=== PATIENT | male | born 1990 | race Two or more races ===

== ENCOUNTER 2020-09-05 01:10 | Emergency (ER) | payer SELFPAY ==
[~2020-09-05] VITALS: Ht 175.3 cm; Wt 81.6 kg
--- NOTE | 2020-09-05 01:30 | NUR ---
[facility]ash from [facility] [employer] [facility] [employer]. field bs 100. pt noted with eyes closed, responds to painful stimuli, rr even and unlabored. no sob noted. periods of dry heaving noted. pt connected to monitor. pt evaluated by dr. pleitez.
--- NOTE | 2020-09-05 01:35 | NUR ---
BROUGHT BACK FROM CT
[2020-09-05] MEDS ORDERED: ONDANSETRON HCL/PF 4 MG/2 ML VIAL ONE (01:55)
[2020-09-05] MEDS ORDERED: ONDANSETRON HCL/PF 4 MG/2 ML VIAL IM ONE (02:00)
--- NOTE | 2020-09-05 02:58 | NUR ---
BROUGHT TO CT AND BACK.
--- NOTE | 2020-09-05 07:15 | NUR ---
assume patient care, sleeping, easily arousable, vss. will continue to monitor.
[2020-09-05 08:54] VITALS: BP 132/76
--- NOTE | 2020-09-05 08:54 | NUR ---
Patient discharged to home in stable condition. Written and verbal after care instructions given. Patient verbalizes understanding of instruction.
== END 2020-09-05 08:55 | disposition home or self-care (01) ==
LOC: ER 01:13
DX: F10.129 Alcohol abuse with intoxication, unspecified (principal); Y90.9 Presence of alcohol in blood, level not specified
CPT/HCPCS: 70450; 96372; 99284; J2405